=== PATIENT | female | born 1995 | race Caucasian/White ===

== ENCOUNTER → 2020-08-14 12:59 | Outpatient (BNVA) | payer OTHER, SELFPAY | PROVIDERS: PCP Nurse Practitioner Family; Visit Provider Physician Assistant | DX: S82.832A Other fracture of upper and lower end of left fibula, initial encounter for closed fracture (principal) | CPT/HCPCS: 99203 ==

== ENCOUNTER 2021-03-19 12:43 | Outpatient (REF) | payer OTHER, SELFPAY ==
[2021-03-19 13:21] LABS: COVID-19 Test Negative (Negative); IDNOW Serial# 55D5AD1C
== END 2021-03-19 12:44 | disposition home or self-care (01) ==
LOC: HO.LAB 12:43
PROVIDERS: Visit Provider Internal Medicine
DX: Z20.822 Contact with and (suspected) exposure to COVID-19 (principal)
CPT/HCPCS: 36415; 87635; C9803

== ENCOUNTER 2022-02-12 19:59 | Emergency (ER) | payer OTHER, SELFPAY ==
--- NOTE | 2022-02-12 20:22 | ECG_ITS ---
Test Reason : NAUSEA Blood Pressure : / mmHG Vent. Rate : 095 BPM Atrial Rate : 095 BPM P-R Int : 126 ms QRS Dur : 084 ms QT Int : 352 ms P-R-T Axes : 053 062 030 degrees QTc Int : 442 ms Normal sinus rhythm Nonspecific ST abnormality Abnormal ECG No previous ECGs available Referred By: Lizzeth Ramesh Electronically Signed By:MAGNUS GRANT MD
[2022-02-12 21:07] VITALS: BP 115/81; PULSE 103; RESP 18; TEMP 37.1; O2SAT 100; BMI 30.3
[2022-02-12 21:38] LABS: MANUAL DIFF FLAG NO
[2022-02-12 21:40] LABS: Basophils Absolute Auto 0.1 X10*3/uL (0.0-0.2); Basophils Percent Auto 0.5 % (0-2); Eosinophils Absolute Auto 0.5 X10*3/uL (0.0-0.4); Eosinophils Percent Auto 3.7 % (0-4); Hematocrit 37.8 % (37.0-47.0); Imm Gran Abs Auto 0.05 X10*3/uL (0.00-0.03); Imm Gran Pct Auto 0.4 % (0.0-0.4); Lymphocytes Absolute Auto 2.5 X10*3/uL (1.2-4.9); Lymphocytes Percent Auto 20.2 % (20-40); Mean Corpuscular HGB Conc 34.4 g/dl (31.0-35.0); Mean Corpuscular Hemoglobin 30.2 pg (27.0-33.0); Mean Corpuscular Volume 87.7 fL (80.0-98.0); Mean Platelet Volume 10.8 fL (9.4-12.3); Monocytes Absolute Auto 0.8 X10*3/uL (0.1-1.2); Monocytes Percent Auto 6.5 % (2-11); Neutrophils Absolute Auto 8.4 x10*3/uL (2.0-8.3); Neutrophils Percent Auto 68.7 % (45-73); Platelet Count 345 X10*3/uL (160-400); Red Blood Count 4.31 X10*6/uL (4.20-5.50); Red Cell Distribution Width 11.9 % (11.0-16.0); White Blood Count 12.2 X10*3/uL (4.8-10.8)
[2022-02-12 21:51] LABS: Appearance Urine TURBID; Color Urine DK YELLOW; Glucose Urine UA NEG (NEG); Leukocyte Esterase Urine 2+ (NEG); Nitrite Urine NEG (NEG); UACC Culture Trigger YES; Urine Blood NEG (NEG); Urine Ketones 5 MG/DL (NEG); Urine Protein 1+ MG/DL (NEG-TRACE)
[2022-02-12 21:53] LABS: UPreg QC Valid YES; Urine Pregnancy POSITIVE (NEGATIVE)
[2022-02-12 21:55] LABS: Amphetamine Screen Urine Not Detected (Not Detect); Barbiturates, Urine Not Detected (Not Detect); Benzodiazepines Screen Urine Not Detected (Not Detect); Cannabinoid Screen Urine POSITIVE (Not Detect); Cocaine Screen Urine Not Detected (Not Detect); Fentanyl, urine Not Detected (Not Detect); Influenza A Negative (Negative); Influenza B2 Negative (Negative); Opiate Screen Urine Not Detected (Not Detect); Phencyclidine Screen Urine Not Detected (Not Detect)
[2022-02-12 21:56] LABS: Alanine Aminotransferase 220 U/L (0-31); Albumin Level 4.3 g/dL (3.5-5.0); Alkaline Phosphatase 105 U/L (39-117); Anion Gap 14 (12-20); Aspartate Amino Transferase 38 U/L (5-31); Bilirubin Direct 0.4 mg/dL (0.0-0.5); Bilirubin Total 0.7 mg/dL (0.0-1.0); Blood Urea Nitrogen 8 mg/dL (9-16); Calcium 9.6 mg/dL (8.4-10.2); Carbon Dioxide 26 mmol/L (22-29); Chloride 102 mmol/L (96-108); Estimated Glomerular Filt Rate > 60; Glucose Random 80 mg/dL (60-115); Potassium 4.1 mmol/L (3.3-5.1); Sodium 138 mmol/L (135-145); Total Protein 7.5 g/dL (6.5-8.0)
[2022-02-12 21:56] LABS: COVID-19 Test Negative (Negative); IDNOW Serial# 55D5AD1C
[2022-02-12 21:58] LABS: Amorphous Sediment Urine 4+ /LPF; Bacteria Urine 3+ /LPF; Squamous Epithelial Cell Urine 2+ /LPF
[2022-02-12 21:58] LABS: Troponin-I High Sensitivity < 3.5 ng/L (<3.5-17.0)
[2022-02-12 22:42] VITALS: BP 119/70; PULSE 78; RESP 14; TEMP 37.1; O2SAT 99
--- NOTE | 2022-02-12 22:53 | ED.NAVMDI ---
HPI - Nausea/Vomiting/Diarrhea General Chief complaint: Nausea/Vomiting/Diarrhea Stated complaint: n/v/d, dizziness Time Seen by Provider: 02/12/22 20:22 Source: patient Mode of arrival: ambulatory Limitations: no limitations History of Present Illness HPI Narrative: Patient is a 26-year-old female with no significant past medical history. Emergency department for evaluation of nausea and vomiting, chills and generalized weakness for 2 weeks. She reports that she is currently 7 weeks , last menstrual period is unknown as her menses are irregular, she tested positive on a home in January 14, 2022. She has not yet been evaluated by personal glass artist, however she has been evaluated at [facility] at [facility] for her nausea and vomiting. She reports that she has needed to receive IV fluids, has trialed Zofran and Reglan without improvement in nausea and vomiting. She states that this happened with her previous as well. She reports that she was going to be given a prescription for vitamin B6 but it was not sent to her pharmacy. She denies headaches, fevers, nasal congestion, sore throat, neck pain, chest pain, palpitations, shortness of breath, difficulty breathing, abdominal pain, diarrhea, constipation, dysuria, urinary frequency/urgency/hesitancy. Related Data Home Medications Medication Instructions Recorded Confirmed tramadol 50 mg tablet 50 mg PO Q6H PRN 08/07/20 08/12/20 ibuprofen 800 mg tablet 800 mg PO Q6H 08/14/20 oxycodone-acetaminophen 5 mg-325 1 tab PO Q4-6H PRN 08/14/20 mg tablet Previous Rx's Medication Instructions Recorded leg brace (Ankle Brace) #1 ea 08/22/20 leg brace (Ankle Brace) #1 ea 08/23/20 amoxicillin 875 mg-potassium 1 tab PO Q12H 7 Days #14 tab 02/13/22 clavulanate 125 mg tablet prochlorperazine 25 mg rectal 25 mg AL BID PRN #12 ea 02/13/22 suppository (Compazine) pyridoxine (vitamin B6) 25 mg 25 mg PO TID #20 tab 02/13/22 tablet Allergies Allergy/AdvReac Type Severity Reaction Status Date / Time No Known Allergies Allergy Unverified 07/27/20 16:27 Review of Systems Review of Systems: Constitutional : No Weight loss, No Fever, positive Chills ENT/Mouth :? No sore throat, No Rhinorrhea Eyes: No Swelling, No Redness Cardiovascular : No Chest Pain, No SOB, No Edema Respiratory : No Cough, No Sputum, No Wheezing Gastrointestinal : Positive Nausea, Positive Vomiting, no Diarrhea, no abdominal pain, No Hematochezia, No Melena Genitourinary : No Dysuria, No Urinary Frequency, No Hematuria, No Urgency? Musculoskeletal : No joint pain, No Myalgias, No Joint Swelling Skin : No Skin Lesions, No rash Neuro : No Weakness, No Numbness, No Dizziness, No Headache Psych : No Anxiety/Panic, No Depression Heme/Lymph: No Bruising, No Lymphadenopathy Endocrine : No Polyuria, No Polydipsia Yes all other systems are reviewed and are negative [facility] Past Medical History Attestation statement: The following information was validated with the patient. Source: old records reviewed Family History Family History Father No problems noted. Mother No problems noted. Social History Social History Advance Directives: No Advance Directives Information Provided: Yes Patient : Yes Physical Exam Vital Signs: Vital Signs: Last Vital Signs Temp 98.8 F 02/12/22 22:42 Pulse 78 02/12/22 22:42 Resp 14 02/12/22 22:42 BP 119/70 02/12/22 22:42 Pulse Ox 99 02/12/22 22:42 BMI result Body Mass Index 30.3 Vital signs have been reviewed as normal and appeared to be correct. Blood pressure normal.? Heart rate normal.? Respiration rate normal. Temperature normal.? Oxygen saturation normal. Appearance: Alert.?Oriented to person, place and time. No acute distress.?Normal affect. Eyes: Pupils equal, round and reactive to light.? ENT: Pharynx normal.?? Neck: Normal inspection.? Neck supple.?? CVS: Heart sounds normal. Normal heart rate and rhythm.? Pulses normal.?? Respiratory: No respiratory distress.? Lung sounds clear to auscultation bilaterally?? Abdomen: Soft and non-tender. Normoactive bowel sounds. No pulsatile mass.?? Skin: Skin warm and dry.? Normal skin color.? Normal skin turgor.?? Extremities: No lower extremity edema.? Neuro: Moves all extremities spontaneously. Sensation intact bilaterally. CN II-XII intact. No focal neuro deficits. Ambulates with normal steady gait. Course Course Course Narrative: Patient is a 26-year-old female being evaluated for nausea with persistent vomiting. She has already trialed Reglan and Zofran from OB clinic without significant improvement. CBC reveals a mild leukocytosis of 12.2. CMP reveals elevated AST and ALT 38/220, previously elevated in 2019 as well, otherwise unremarkable CMP. EKG reveals normal sinus rhythm with nonspecific ST abnormality no acute concern for ischemia, troponin <3.5, no risk factors therefore unlikely to be ACS. COVID-19 influenza testing are negative. Urinalysis reveals 2+ leuk esterase, 5-9 WBC, 3+ bacteria, 2+ epithelial cells. Will treat with IV fluids, Compazine, and Rocephin 1 g IV for urinary tract infection, cannot completely exclude pyelonephritis, patient states she is unsure whether she has previously had a urinary tract infection, but states she has not been on antibiotics. P.o. trial after. Disposition pending results. Reevaluation(s) Reevaluation #1: Patient tolerating crackers and has been drinking vomiting. She reports mild improvement in her nausea. Discussed plan of care for discharge home, outpatient follow-up with OBGYN, discussed reasons to return back to emergency department. Will send prescription to the pharmacy for vitamin B6 and Compazine suppositories. In addition will send prescription for Augmentin for treatment of urinary tract infection and coverage of possible pyelonephritis. Advise if she develops fevers, shaking chills, abdominal pain, back/flank pain, dysuria, urinary frequency/urgency/hesitancy, or any new concerning symptoms she should return back to emergency department for evaluation. Time: 01:17 MDM - Nausea/Vomiting/Diarrhea Medical Records Attestation: I reviewed the patient's medical records. Lab Data Attestation: I reviewed the patient's lab results. Result diagrams: 02/12/22 21:25 02/12/22 21:25 Labs: Lab Results 02/12/22 02/12/22 02/12/22 Range/Units 21:25 21:25 21:25 WBC 12.2 H (4.8-10.8) X10*3/uL RBC 4.31 (4.20-5.50) X10*6/uL Hgb 13.0 (12.0-16.0) g/dl Hct 37.8 (37.0-47.0) % MCV 87.7 (80.0-98.0) fL MCH 30.2 (27.0-33.0) pg MCHC 34.4 (31.0-35.0) g/dl RDW 11.9 (11.0-16.0) % Plt Count 345 (160-400) X10*3/uL MPV 10.8 (9.4-12.3) fL Immature Gran % (Auto) 0.4 (0.0-0.4) % Neut % (Auto) 68.7 (45-73) % Lymph % (Auto) 20.2 (20-40) % Barton % (Auto) 6.5 (2-11) % Eos % (Auto) 3.7 (0-4) % Baso % (Auto) 0.5 (0-2) % Lymph # (Auto) 2.5 (1.2-4.9) X10*3/uL Barton # (Auto) 0.8 (0.1-1.2) X10*3/uL Eos # (Auto) 0.5 H (0.0-0.4) X10*3/uL Baso # (Auto) 0.1 (0.0-0.2) X10*3/uL Abs Immat Gran (auto) 0.05 H (0.00-0.03) X10*3/uL Absolute Neuts (auto) 8.4 H (2.0-8.3) x10*3/uL Absolute Nucleated RBC 0.000 (0.0-0.012) X10*3/uL Nucleated RBC % (auto) 0.0 (0.0-0.2) /100WBC Sodium 138 (135-145) mmol/L Potassium 4.1 (3.3-5.1) mmol/L Chloride 102 (96-108) mmol/L Carbon Dioxide 26 (22-29) mmol/L Anion Gap 14 (12-20) BUN 8 L (9-16) mg/dL Creatinine 0.62 (0.5-1.4) mg/dL Estim Creat Clear Calc 142.0 Estimated GFR > 60 Random Glucose 80 (60-115) mg/dL Calcium 9.6 (8.4-10.2) mg/dL Total Bilirubin 0.7 (0.0-1.0) mg/dL Direct Bilirubin 0.4 (0.0-0.5) mg/dL AST 38 H (5-31) U/L ALT 220 H (0-31) U/L Alkaline Phosphatase 105 (39-117) U/L Troponin I High Sens < 3.5 (<3.5-17.0) ng/L Total Protein 7.5 (6.5-8.0) g/dL Albumin 4.3 (3.5-5.0) g/dL Beta HCG, Quant 31403 mIU/mL Urine Color Urine Appearance Urine pH (5.0-8.0) Ur Specific [place] (1.005-1.025) Urine Protein (NEG-TRACE) MG/DL Urine Glucose (UA) (NEG) MG/DL Urine Ketones (NEG) MG/DL Urine Blood (NEG) Urine Nitrite (NEG) Ur Leukocyte Esterase (NEG) Urine RBC (0) /HPF Urine WBC (0-4) /HPF Ur Squamous Epith Cells /LPF Amorphous Sediment /LPF Urine Bacteria /LPF Urine Test (NEGATIVE) Urine Opiates Screen (Not Detect) Urine Fentanyl Screen (Not Detect) Ur Barbiturates Screen (Not Detect) Ur Phencyclidine Scrn (Not Detect) Ur Amphetamines Screen (Not Detect) U Benzodiazepines Scrn (Not Detect) Urine Cocaine Screen (Not Detect) U Marijuana (THC) Screen (Not Detect) COVID-19 (TAYLA) (Negative) COVID-19 Clin Com Influenza Type A (EVAN) (Negative) Influenza Type B (EVAN) (Negative) Influenza A & B Note 02/12/22 02/12/22 02/12/22 Range/Units 21:26 21:26 21:26 WBC (4.8-10.8) X10*3/uL RBC (4.20-5.50) X10*6/uL Hgb (12.0-16.0) g/dl Hct (37.0-47.0) % MCV (80.0-98.0) fL MCH (27.0-33.0) pg MCHC (31.0-35.0) g/dl RDW (11.0-16.0) % Plt Count (160-400) X10*3/uL MPV (9.4-12.3) fL Immature Gran % (Auto) (0.0-0.4) % Neut % (Auto) (45-73) % Lymph % (Auto) (20-40) % Barton % (Auto) (2-11) % Eos % (Auto) (0-4) % Baso % (Auto) (0-2) % Lymph # (Auto) (1.2-4.9) X10*3/uL Barton # (Auto) (0.1-1.2) X10*3/uL Eos # (Auto) (0.0-0.4) X10*3/uL Baso # (Auto) (0.0-0.2) X10*3/uL Abs Immat Gran (auto) (0.00-0.03) X10*3/uL Absolute Neuts (auto) (2.0-8.3) x10*3/uL Absolute Nucleated RBC (0.0-0.012) X10*3/uL Nucleated RBC % (auto) (0.0-0.2) /100WBC Sodium (135-145) mmol/L Potassium (3.3-5.1) mmol/L Chloride (96-108) mmol/L Carbon Dioxide (22-29) mmol/L Anion Gap (12-20) BUN (9-16) mg/dL Creatinine (0.5-1.4) mg/dL Estim Creat Clear Calc Estimated GFR Random Glucose (60-115) mg/dL Calcium (8.4-10.2) mg/dL Total Bilirubin (0.0-1.0) mg/dL Direct Bilirubin (0.0-0.5) mg/dL AST (5-31) U/L ALT (0-31) U/L Alkaline Phosphatase (39-117) U/L Troponin I High Sens (<3.5-17.0) ng/L Total Protein (6.5-8.0) g/dL Albumin (3.5-5.0) g/dL Beta HCG, Quant mIU/mL Urine Color DK YELLOW Urine Appearance TURBID Urine pH 7.0 (5.0-8.0) Ur Specific [place] 1.010 (1.005-1.025) Urine Protein 1+ H (NEG-TRACE) MG/DL Urine Glucose (UA) NEG (NEG) MG/DL Urine Ketones 5 (NEG) MG/DL Urine Blood NEG (NEG) Urine Nitrite NEG (NEG) Ur Leukocyte Esterase 2+ H (NEG) Urine RBC 1-4 (0) /HPF Urine WBC 5-9 H (0-4) /HPF Ur Squamous Epith Cells 2+ /LPF Amorphous Sediment 4+ /LPF Urine Bacteria 3+ /LPF Urine Test (NEGATIVE) Urine Opiates Screen (Not Detect) Urine Fentanyl Screen (Not Detect) Ur Barbiturates Screen (Not Detect) Ur Phencyclidine Scrn (Not Detect) Ur Amphetamines Screen (Not Detect) U Benzodiazepines Scrn (Not Detect) Urine Cocaine Screen (Not Detect) U Marijuana (THC) Screen (Not Detect) COVID-19 (TAYLA) Negative (Negative) COVID-19 Clin Com See Note Influenza Type A (EVAN) Negative (Negative) Influenza Type B (EVAN) Negative (Negative) Influenza A & B Note See Note 02/12/22 02/12/22 Range/Units 21:26 21:26 WBC (4.8-10.8) X10*3/uL RBC (4.20-5.50) X10*6/uL Hgb (12.0-16.0) g/dl Hct (37.0-47.0) % MCV (80.0-98.0) fL MCH (27.0-33.0) pg MCHC (31.0-35.0) g/dl RDW (11.0-16.0) % Plt Count (160-400) X10*3/uL MPV (9.4-12.3) fL Immature Gran % (Auto) (0.0-0.4) % Neut % (Auto) (45-73) % Lymph % (Auto) (20-40) % Barton % (Auto) (2-11) % Eos % (Auto) (0-4) % Baso % (Auto) (0-2) % Lymph # (Auto) (1.2-4.9) X10*3/uL Barton # (Auto) (0.1-1.2) X10*3/uL Eos # (Auto) (0.0-0.4) X10*3/uL Baso # (Auto) (0.0-0.2) X10*3/uL Abs Immat Gran (auto) (0.00-0.03) X10*3/uL Absolute Neuts (auto) (2.0-8.3) x10*3/uL Absolute Nucleated RBC (0.0-0.012) X10*3/uL Nucleated RBC % (auto) (0.0-0.2) /100WBC Sodium (135-145) mmol/L Potassium (3.3-5.1) mmol/L Chloride (96-108) mmol/L Carbon Dioxide (22-29) mmol/L Anion Gap (12-20) BUN (9-16) mg/dL Creatinine (0.5-1.4) mg/dL Estim Creat Clear Calc Estimated GFR Random Glucose (60-115) mg/dL Calcium (8.4-10.2) mg/dL Total Bilirubin (0.0-1.0) mg/dL Direct Bilirubin (0.0-0.5) mg/dL AST (5-31) U/L ALT (0-31) U/L Alkaline Phosphatase (39-117) U/L Troponin I High Sens (<3.5-17.0) ng/L Total Protein (6.5-8.0) g/dL Albumin (3.5-5.0) g/dL Beta HCG, Quant mIU/mL Urine Color Urine Appearance Urine pH (5.0-8.0) Ur Specific [place] (1.005-1.025) Urine Protein (NEG-TRACE) MG/DL Urine Glucose (UA) (NEG) MG/DL Urine Ketones (NEG) MG/DL Urine Blood (NEG) Urine Nitrite (NEG) Ur Leukocyte Esterase (NEG) Urine RBC (0) /HPF Urine WBC (0-4) /HPF Ur Squamous Epith Cells /LPF Amorphous Sediment /LPF Urine Bacteria /LPF Urine Test POSITIVE H (NEGATIVE) Urine Opiates Screen Not Detected (Not Detect) Urine Fentanyl Screen Not Detected (Not Detect) Ur Barbiturates Screen Not Detected (Not Detect) Ur Phencyclidine Scrn Not Detected (Not Detect) Ur Amphetamines Screen Not Detected (Not Detect) U Benzodiazepines Scrn Not Detected (Not Detect) Urine Cocaine Screen Not Detected (Not Detect) U Marijuana (THC) Screen POSITIVE H (Not Detect) COVID-19 (TAYLA) (Negative) COVID-19 Clin Com Influenza Type A (EVAN) (Negative) Influenza Type B (EVAN) (Negative) Influenza A & B Note ECG Data Attestation: I personally reviewed and interpreted this ECG as follows: ECG interpretation date: 02/12/22 ECG interpretation time: 22:59 Prior ECG tracings: not available for review Interpretation: Rate: 95 Rhythm:? Normal sinus rhythm [place]:? Normal Normal P waves.? Normal LITA.?? Normal QRS complex.?? ST T wave :??Nonspecific ST abnormality qTC: 442 prior studies:? None available for review The study has been interpreted contemporaneously by me. Discharge Plan Discharge Clinical Impression: Urinary tract infection, Hyperemesis gravidarum Patient Disposition: Home, Self-Care Instructions: Urinary Tract Infection in (ED) Additional Instructions: Please take Vitamin B6 25 mg by mouth every 6 hours, Compazine 25 mg rectal suppository every 8 hours, and Augmentin every 12 hours for 7 days for urinary tract infection. Please contact your OBGYN to schedule follow-up appointment within 1-3 days. Return to the emergency department with any new or worsening symptoms or concerns. Prescriptions: New pyridoxine (vitamin B6) 25 mg tablet 25 mg PO TID Qty: 20 0RF prochlorperazine [Compazine] 25 mg suppository 25 mg AL BID PRN (Reason: nausea and vomiting) Qty: 12 0RF amoxicillin-pot clavulanate 875-125 mg tablet 1 tab PO Q12H 7 Days Qty: 14 0RF No Action (DME) Ankle Brace Misc See Rx Instructions .ROUTE .MEDSUPPLY Qty: 1 0RF Rx Instructions: AIRSELECT, STANDARD, MEDIUM (DME) Ankle Brace Misc See Rx Instructions .ROUTE .MEDSUPPLY Qty: 1 0RF Rx Instructions: AIRSELECT, STANDARD, MEDIUM tramadol 50 mg tablet 50 mg PO Q6H PRN0RF
[2022-02-12] MEDS: 0.9 % Sodium Chloride 1,000 ML 999 ML IV (23:50)
[2022-02-13] MEDS: Prochlorperazine Edisylate 10 MG/2 ML VIAL 5 MG IVPUSH (00:21)
[2022-02-13] MEDS: cefTRIAXone sodium 1 GM in 0.9 % Sodium Chloride 50 ML IV (00:28)
== END 2022-02-13 01:40 | disposition home or self-care (01) ==
PROVIDERS: Emergency Medicine; Nurse Practitioner Family; Emergency Provider Internal Medicine
DX: O21.0 Mild hyperemesis gravidarum (principal); O23.41 Unspecified infection of urinary tract in pregnancy, first trimester; N39.0 Urinary tract infection, site not specified; Z3A.01 Less than 8 weeks gestation of pregnancy; Z20.822 Contact with and (suspected) exposure to COVID-19
CPT/HCPCS: 80048; 80076; 80307; 81001; 81025; 84484; 84702; 85025; 87086; 87088; 87186; 87502; 87635; 93005; 96365; 96375; 99284; J0696